=== PATIENT | female | born 1960 | race Caucasian/White ===

== ENCOUNTER → 2017-05-09 | Outpatient (CLI) | payer MEDICAID ==
[2017-05-09 08:49] LABS: Basophils % (A) 1 %; CH 35.8; CHCM 34.8; Eosinophils # (A) 0.2 k/uL (0-0.7); Eosinophils % (A) 3 %; HCT 46.3 % (34.0-46.0); HDW 2.68; HGB 15.4 gm/dL (11.4-16.0); Luc # (Auto) 0.08; Luc % (Auto) 2; Lymphocytes # (A) 1.8 k/uL (1.0-4.8); Lymphocytes % (A) 41 %; MCH 34.5 pg (25.0-35.0); MCHC 33.4 g/dL (31.0-37.0); MCV 103.3 fL (80.0-100.0); Macrocytosis Slight; Mean Platelet Volume 7.1; Monocytes # (A) 0.3 k/uL (0-1.0); Monocytes % (A) 7 %; Neutrophils % (A) 46 %; RBC 4.48 m/uL (3.80-5.40); RDW 13.5 % (11.5-15.5); WBC 4.4 k/uL (3.8-10.6); WBC (Perox) 4.32
[2017-05-09 08:52] LABS: ALT 45 U/L (9-52); AST 33 U/L (14-36); Alkaline Phosphatase 66 U/L (38-126); Anion Gap 9 mmol/L; Blood Urea Nitrogen 15 mg/dL (7-17); Calcium 9.5 mg/dL (8.4-10.2); Carbon Dioxide 28 mmol/L (22-30); Chloride 107 mmol/L (98-107); Cholesterol 270 mg/dL (<200); Glucose 93 mg/dL (74-99); HDL Cholesterol 71 mg/dL (40-60); Non-African American GFR(MDRD) >60 (>60 ml/min/1.73 sqM); Potassium 4.6 mmol/L (3.5-5.1); Sodium 144 mmol/L (137-145); Total Bilirubin 0.7 mg/dL (0.2-1.3); Total Protein 7.9 g/dL (6.3-8.2)
== END | disposition home or self-care (01) ==
LOC: LABWHC1 08:10
PROVIDERS: ATTEND Physician Assistant
DX: Z01.419 Encounter for gynecological examination (general) (routine) without abnormal findings (principal); Z13.220 Encounter for screening for lipoid disorders
CPT/HCPCS: 36415; 80053; 80061; 82306; 85025

== ENCOUNTER → 2017-05-26 | Outpatient (CLI) | payer MEDICAID ==
--- NOTE | 2017-05-29 14:05 | MM ---
Reason for exam: screening (asymptomatic). Last mammogram was performed 1 year ago. History: Patient is postmenopausal and history of other cancer. Physical Findings: A clinical breast exam by your physician is recommended on an annual basis and results should be correlated with mammographic findings. MG 3D Screening Mammo W/Cad Bilateral CC and MLO view(s) were taken. Prior study comparison: May 11, 2016, bilateral MG 3d screening mammo w/cad. March 25, 2015, bilateral MG screening mammo w CAD. There are scattered fibroglandular densities. No significant changes when compared with prior studies. ASSESSMENT: Negative, BI-RAD 1 RECOMMENDATION: Routine screening mammogram of both breasts in 1 year.
== END | disposition home or self-care (01) ==
LOC: RADMAMWWP 15:25
PROVIDERS: ATTEND Family Medicine
DX: Z12.31 Encounter for screening mammogram for malignant neoplasm of breast (principal)
CPT/HCPCS: 77063; G0202

== ENCOUNTER → 2017-10-16 | Outpatient (CLI) | payer MEDICAID ==
--- NOTE | 2017-10-16 10:16 | EST ---
EXERCISE STRESS DATE OF SERVICE: 10/16/2017 AGE: 57 SEX: Female HT: 68" WT: 142 pounds PROTOCOL: Cardiolite Deven STAGE: II DURATION OF EXERCISE: 6 minutes HEART RATE REST: 77 BLOOD PRESSURE REST: 117/81 MAXIMUM HEART RATE ACHIEVED: 156 MAXIMUM BLOOD PRESSURE: 149/54 85% MPHR: 139 100% MPHR: 164 METS: 7 INDICATIONS: Abnormal EKG and chest pain. CLINICAL INFORMATION: Baseline EKG shows sinus rhythm, normal axis, normal intervals. Patient exercised on Deven protocol for a total of 6 minutes achieving 7 METs, 95% of predicted maximal heart rate without chest pain. At peak exercise, there was 0.[address]-segment depression noted in the inferolateral leads. CONCLUSIONS: 1. Average exercise tolerance. 2. Nondiagnostic EKG changes with exercise. 3. Cardiolite portion of the stress test will be reported separately. MMMYLESL / IJN: [id number] /
--- NOTE | 2017-10-16 12:11 | NM ---
EXAMINATION TYPE: NM stress cardiolite complete DATE OF EXAM: 10/16/2017 COMPARISON: NONE HISTORY: 57-year-old female with chest pain TECHNIQUE: After the intravenous administration of 10.78 mCi Tc 99m Sestamibi - Rest images obtained 50 minutes post injection. The patient exercised using a ORACIO protocol and 1 minute prior to peak exercise was injected with 29.8 mCi Tc 99m Sestamibi - Stress images obtained 10 minutes post inject ion. FINDINGS: Targeted heart rate was achieved during performance of the study (95% maximal heart rate achieved). Review of stress and rest SPECT images demonstrates a moderate-sized area of fixed perfusion defect a long the mid anterior, anteroseptal wall. Gated analysis shows some augmentation of this segment of t he left ventricular wall and otherwise normal wall motion with an estimated left ventricular ejection fraction of 72 %. TID is calculated at 1.06, within normal limits. IMPRESSION: 1. No scintigraphic evidence for reversible ischemia. 2. Moderate-sized fixed perfusion abnormality along the mid anterior, anteroseptal wall could reflect an old infarct or prominent attenuation artifact. Clinically correlate. The latter is favored.
== END | disposition home or self-care (01) ==
LOC: RADNMMAIN 07:49
PROVIDERS: ATTEND Family Medicine
DX: R93.1 Abnormal findings on diagnostic imaging of heart and coronary circulation (principal); R07.9 Chest pain, unspecified
CPT/HCPCS: 93017; 78452; A9500

== ENCOUNTER → 2017-11-08 | Outpatient (CLI) | payer MEDICAID ==
--- NOTE | 2017-11-08 14:37 | ECHOS ---
STRESS ECHOCARDIOGRAM INDICATIONS: Abnormal Stress, chest pain. MEDICATIONS: Lipitor, Ultram, aspirin. BASELINE HEART RATE: 77 BASELINE BLOOD PRESSURE: 111/51 MAXIMUM HEART RATE: 168 MAXIMUM BLOOD PRESSURE: 160/75 85% MPHR: 139 100% MPHR: 164 METS: 12.1 MAXIMUM STAGE REACHED: III TOTAL EXERCISE TIME: 11:01 CLINICAL INFORMATION: Baseline rhythm is sinus mechanism, rate of 77, normal axis, intervals, normal electrocardiogram. Baseline blood pressure 111/51 mmHg. Patient exercised on Deven protocol for 11 minutes 1 second. Patient's peak rate at 168 beats per minute, which is equal to 102% maximum predicted heart rate. Peak blood pressure 160/75 mmHg. Test was terminated due to fatigue. There was no chest pain. Electrocardiograph monitoring revealed no evidence of diagnostic ischemic ST deviation. FINDING: Baseline echocardiogram revealed normal systolic function. At peak exercise, there was normal wall motion augmentation with no hypokinesis or dyskinesis. CONCLUSION: 1. Good exercise tolerance with normal electrocardiograph response to exercise. 2. Normal stress echocardiogram with no evidence of stress-induced ischemia. MMODL / IJN: [id number] /
== END | disposition home or self-care (01) ==
LOC: RADNMMAIN 09:01
PROVIDERS: ATTEND Internal Medicine Interventional Cardiology
DX: R07.89 Other chest pain (principal)
CPT/HCPCS: 93350; 93017; Q9950

== ENCOUNTER → 2017-12-13 | Outpatient (CLI) | payer MEDICAID ==
[2017-12-13 08:20] LABS: ALT 48 U/L (9-52); AST 37 U/L (14-36); Cholesterol 154 mg/dL (<200); HDL Cholesterol 64 mg/dL (40-60); LDL Cholesterol,Calculated 72 mg/dL (0-99); Triglycerides 92 mg/dL (<150)
== END | disposition home or self-care (01) ==
LOC: LABWHC1 07:01
PROVIDERS: ATTEND Internal Medicine Interventional Cardiology
DX: E78.2 Mixed hyperlipidemia (principal)
CPT/HCPCS: 36415; 80061; 84450; 84460

== ENCOUNTER → 2018-02-07 | Outpatient (CLI) | payer MEDICAID ==
[2018-02-07 15:42] VITALS: BP 118/80; PULSE 69; RESP 16
--- NOTE | 2018-02-07 16:06 | P.CONS ---
History of Present Illness - Reason for Consult Consult date: 02/07/18 - History of Present Illness This is 57 years FEMALE with acute history of severe right-sided neck pain and headache, started 6 days ago, she denies any initiating event and she reported that the pain is constant and increases with any neck movement, she denies any motor or sensory deficit in the upper extremity, described intensity of the pain 6/10 increased with any neck movement to 8/10, interfering with her quality of life, she denies any fever or night sweats, ringing sensation Past Medical History Past Medical History: Blood Disorder Additional Past Medical History / Comment(s): 11/20/14 Pt admitted to floor s/p cervical arthroplasty C5-6, C6-7. Other HX: FACTOR 5-MTHFR MUTATION, HX OF BASAL CELL SKIN CA, CHRONIC NECK PAIN. LAST SEIZURE 2 YRS AGO. History of Any Multi-Drug Resistant Organisms: None Reported Past Surgical History: Back Surgery, Hysterectomy, Orthopedic Surgery, Tonsillectomy Additional Past Surgical History / Comment(s): 11/20/14 Cervical arthroplasty C5 -6, C6-7. BASAL CELL SKIN CA - RT SHOULDER. LAPAROSCOPY, FUSION L4 & L5. Past Anesthesia/Blood Transfusion Reactions: No Reported Reaction Past Psychological History: No Psychological Hx Reported Smoking Status: Never smoker Past Alcohol Use History: Occasional Past Drug Use History: None Reported Medications and Allergies Home Medications Medication Instructions Recorded Confirmed Type Ibuprofen [Motrin] 1 tab PO DIRECTED PRN 03/24/14 11/20/14 History Multivitamins, Thera [Multivitamin 1 each PO DAILY 11/13/14 11/20/14 History (formulary)] traMADol HCl [Ultram] 50 mg PO Q12HR PRN 02/07/18 02/07/18 History Allergies Allergy/AdvReac Type Severity Reaction Status Date / Time No Known Allergies Allergy Verified 02/07/18 15:31 Physical Exam Vitals: Vital Signs Pulse Resp BP Pulse Ox 02/07/18 15:33 69 16 118/80 97 Intake and Output 02/07/18 02/07/18 02/07/18 06:59 14:59 22:59 Other: Weight 65.771 kg Physical Examinations : 1-Constitutiona : Cooperative , not in acute distress . 2-HEENT : nech ; supple , no Lymphadenopathy , normal thyroid size . eyes : no ptosis , no icterus, no photophobia . ENT : normal of hearing , normal oropharynx , no Thrush . 3- Respiratory : Chest clear to auscultations Bilaterally , no wheezing , no Rhonchi . 4- Cardiovascular : regular rate and rhythem , S1 , S2 , no S3 , no S4. 5- Gastrointestinal : abdomen soft no tenderness , bowel sounds , no organomegally . 6- Genitourinary : Defferred . 7- neurologic : Cranial nerve II to XII intact , no focal neurological deffecit . 8-psychatric : alert , oriented X 3 , appropriate affect , intact judgment and insight . 9-Lymphatic : no Lymphadenopathy . 10- musculoskeltal : cervical spine = motor stregnth in the deltoid and biceps, motor stregnth biceps and the wrist extensors (C6) . motor stregnth in the triceps muscle . deep tendon reflexes normal at the biceps Right , Left normal at the brachioradia Right , Left Normal at the triceps Right ,Left cervical facet loading test positive. , Multiple trigger points identified in the right-sided cervical paravertebral muscles, suprascapular muscle Lumber spine = normal moter stegnth lower extremities ,thigh and legs .02/03 Assessment and Plan Plan: Assessment and plan= acute neck pain, mostly musculoskeletal in nature, patient will be good candidate to have trigger point injection, right sided cervical paravertebral muscles, and if she continued to have pain after the injection , then we should do MRI of the cervical spine, to evaluate , the etiology facetogenic component versus discogenic component, because patient had the cervical disc arthroplasty done a few years ago ,at C5 6 C6 7 level, which could make her higher risk to have cervical facet arthropathy , Time with Patient: Less than 30
== END | disposition home or self-care (01) ==
LOC: PNWHC3 14:26
PROVIDERS: ATTEND Specialist
DX: G89.29 Other chronic pain (principal); M54.2 Cervicalgia; R51 Headache; Z98.890 Other specified postprocedural states; Z90.89 Acquired absence of other organs; Z79.1 Long term (current) use of non-steroidal anti-inflammatories (NSAID); Z79.899 Other long term (current) drug therapy; Z85.828 Personal history of other malignant neoplasm of skin; Z79.891 Long term (current) use of opiate analgesic
CPT/HCPCS: 99211

== ENCOUNTER 2018-02-08 07:41 | Day surgery (SDC) | payer MEDICAID ==
[2018-02-08 09:07] VITALS: TEMP 97.6
[2018-02-08] MEDS ORDERED: LACTATED RINGERS 1,000 ML IV ONE (09:25)
[2018-02-08] MEDS ORDERED: LIDOCAINE 1% 20 ML VIAL (10MG/ML) FOR IV START INTRADERMA ONE (09:26)
--- NOTE | 2018-02-08 10:28 | P.PCN ---
Date of Procedure: 02/08/18 Procedure(s) Performed: Preoperative diagnoses= 1-myofascial pain syndrome and cervical area Postoperative diagnoses= same as preoperative diagnosis. Procedure= trigger point injections cervical paravertebral muscles , 4 trigger points injected ,on the right side cervical paravertebral muscles Anesthesia= moderate sedation with Versed 2 mg and fentanyl 100 micrograms . Estimated blood loss=minimal. Procedure indication= the patient had a history of severe neck pain clinicwith myofascial pain syndrome and cervical area. Procedure description= the patient was seen and identified in the preoperative holding area, risks and benefits and alternative of the procedure and possible complications discussed with the patient, and he agreed with the preceding, patient signed the consent, an IV was started, and vital signs were monitored and were stable throughout the procedure, patient was placed in the sitting position or table and the cervical area was prepped and draped with a sterile fashion, vital signs were closely monitored during the procedure, then Marcaine 0.5% mixed with 40 mg of Kenalog , 2.5 mL of the mixture , injected at each trigger point , after negative aspiration for heme and CSF and there was no paresthesia during the injection, using 25 guige needle ,then the needle removed, Patient tolerated the procedure well without any complication, The patient returned to supine position after the back was cleaned and a Band- Aid applied, the patient transported to recovery room in stable condition and he was monitored for 30 minutes before he was discharged home and then patient was reexamined before going home and patient was discharged in stable condition and patient will follow up with the pain clinic in a few weeks
[2018-02-08] MEDS ORDERED: IV FLUID CONTINUATION 1,000 ML IV ONE (10:54)
[2018-02-08 11:07] VITALS: BP 115/75; PULSE 67
--- NOTE | 2018-02-12 12:07 | CDI ---
Date: 02/12/18 CDS/Digging Machine Operator Name: Nan Pedro Phone: If any questions, call Zoe Schrader Records Management Clerk at [phone] Patient Name: Kuldip Montalvo Admit Date: 02/08/18 Discharge Date: 02/08/18 ATTENTION: The [facility] Coding Staff appreciate your assistance in clarifying documentation. Please respond to the clarification below the line at the bottom and electronically sign. The [facility] Coding staff will review the response and follow-up if needed. Please note: Queries are made part of the Legal Health Record. If you have any questions, please contact the Records Management Clerk. Dear Dr. Ch, Please provide clarification as to how many muscles were treated with the trigger point injections. Trigger points are coded per muscle treated. Please see below. Trigger point injection codes, clarification CPT Executive Vice President Of [employer], March 2017 Page: 10 Category: Frequently Asked Questions Related Information Surgery: Musculoskeletal System Question: How many times may codes 58182, Injection(s); single or multiple trigger point(s ), 1 or 2 muscle(s), and 55152, Injection(s); single or multiple trigger point(s ), 3 or more muscles, be reported per session with imaging guidance? Answer: : The trigger point injection(s) codes (86683 and 25746) are reported once per session based on the number of muscles injected, regardless of the number of trigger points injected in each muscle. Code 90989 is reported for trigger point (s) injection(s) in 1 or 2 muscles, and code 65795 is reported for trigger points injection(s) in 3 or more muscles. If imaging guidance is utilized, report the appropriate radiology code (79161, 46202, and 96196) in addition to the injection codes. CPT Executive [employer] Of [employer] Copyright 0814-7211, [employer]. All rights reserved Thank you for your kind consideration. MTDD
--- NOTE | 2018-02-22 10:17 | P.PN ---
Progress Note - Text Progress Note Date: 02/22/18 This is clarifications to the procedure note that was dictated earlear , the procedures done is trigger points injections , total of 4 trigger points ,right side cervical area,I injected 2 muscles ,the first muscle was the splenius capitis muscle ( 2 trigger points injected in that mscule) , and the second muscle was the Right trapezius muscule ( 2 trigger points injected in that muscle )
== END 2018-02-08 11:18 | disposition home or self-care (01) ==
LOC: ORPAIN 07:41
PROVIDERS: ATTEND Specialist
DX: G89.29 Other chronic pain (principal); M79.1 Myalgia; D68.51 Activated protein C resistance; Z85.828 Personal history of other malignant neoplasm of skin
CPT/HCPCS: 20552; J2250; J3301; J3010; 20553; 99152

== ENCOUNTER → 2018-07-10 | Outpatient (CLI) | payer MEDICAID ==
[2018-07-10 08:24] LABS: Basophils % (A) 1 %; Eosinophils # (A) 0.2 k/uL (0-0.7); Eosinophils % (A) 3 %; HCT 42.4 % (34.0-46.0); HGB 14.3 gm/dL (11.4-16.0); Lymphocytes # (A) 1.7 k/uL (1.0-4.8); Lymphocytes % (A) 37 %; MCH 33.9 pg (25.0-35.0); MCHC 33.8 g/dL (31.0-37.0); MCV 100.3 fL (80.0-100.0); Mean Platelet Volume 6.5; Monocytes # (A) 0.3 k/uL (0-1.0); Monocytes % (A) 6 %; Neutrophils # (A) 2.5 k/uL (1.3-7.7); Neutrophils % (A) 52 %; Platelet Count 216 k/uL (150-450); RBC 4.23 m/uL (3.80-5.40); WBC 4.7 k/uL (3.8-10.6)
[2018-07-10 08:33] LABS: ALT 43 U/L (9-52); AST 34 U/L (14-36); Albumin 4.2 g/dL (3.5-5.0); Alkaline Phosphatase 47 U/L (38-126); Anion Gap 7 mmol/L; Blood Urea Nitrogen 20 mg/dL (7-17); Calcium 9.6 mg/dL (8.4-10.2); Carbon Dioxide 30 mmol/L (22-30); Chloride 106 mmol/L (98-107); Cholesterol 187 mg/dL (<200); Glucose 94 mg/dL (74-99); HDL Cholesterol 65 mg/dL (40-60); LDL Cholesterol,Calculated 94 mg/dL (0-99); Potassium 4.6 mmol/L (3.5-5.1); Sodium 143 mmol/L (137-145); Total Bilirubin 0.8 mg/dL (0.2-1.3); Total Protein 7.4 g/dL (6.3-8.2); Triglycerides 142 mg/dL (<150)
== END | disposition home or self-care (01) ==
LOC: LABWHC1 07:48
PROVIDERS: ATTEND Nurse Practitioner Family
DX: Z00.00 Encounter for general adult medical examination without abnormal findings (principal); E55.9 Vitamin D deficiency, unspecified; E78.2 Mixed hyperlipidemia
CPT/HCPCS: 36415; 80053; 80061; 82652; 84443; 85025

== ENCOUNTER → 2018-07-17 | Outpatient (CLI) | payer MEDICAID ==
--- NOTE | 2018-07-17 14:57 | XR ---
EXAMINATION TYPE: XR foot complete bilateral DATE OF EXAM: 07/17/2018 CLINICAL HISTORY: Right fifth digit bunion and bilateral foot pain. Concern for arthropathy. TECHNIQUE: Frontal, lateral, and oblique images of the bilateral feet are obtained. COMPARISON: None FINDINGS: There is no acute fracture/dislocation evident in either foot. On the left there is incidental note of an os naviculare. A fragmented ossicle is also seen adjacent to the cuboid that appears well-corticated. On the right there is a smaller posterior naviculare. Pes planus deformity is seen bilaterally. A small infracalcaneal heel spurs noted on the left. Minimal d egenerative changes are seen at the first metatarsophalangeal joint on the right demonstrated as osse ous perforation. No other significant degenerative change are seen. IMPRESSION: 1. There is no acute fracture or dislocation in either foot. 2. Very minimal degenerative change at the first metatarsophalangeal joint on the right. 3. Pes planus. 4. Small left plantar enthesophyte/heel spur.
== END | disposition home or self-care (01) ==
LOC: RADXRMAIN 13:18
PROVIDERS: ATTEND Orthopaedic Surgery
DX: M19.072 Primary osteoarthritis, left ankle and foot (principal); M19.071 Primary osteoarthritis, right ankle and foot; M77.32 Calcaneal spur, left foot; M21.42 Flat foot [pes planus] (acquired), left foot; M21.41 Flat foot [pes planus] (acquired), right foot

== ENCOUNTER → 2018-08-07 | Outpatient (CLI) | payer MEDICAID ==
--- NOTE | 2018-08-08 11:34 | MM ---
Reason for exam: screening (asymptomatic). Last mammogram was performed 1 year and 2 months ago. History: Patient is postmenopausal and history of other cancer. Physical Findings: A clinical breast exam by your physician is recommended on an annual basis and results should be correlated with mammographic findings. MG 3D Screening Mammo W/Cad Bilateral CC and MLO view(s) were taken. Prior study comparison: May 26, 2017, bilateral MG 3d screening mammo w/cad. May 11, 2016, bilateral MG 3d screening mammo w/cad. There are scattered fibroglandular densities. There is no discrete abnormality. No significant changes when compared with prior studies. ASSESSMENT: Negative, BI-RAD 1 RECOMMENDATION: Routine screening mammogram of both breasts in 1 year.
== END ==
LOC: RADMAMWWP 15:23
PROVIDERS: ATTEND Family Medicine
DX: Z12.31 Encounter for screening mammogram for malignant neoplasm of breast (principal)
CPT/HCPCS: 77063; 77067

== ENCOUNTER → 2018-10-05 | Outpatient (CLI) | payer MEDICAID ==
--- NOTE | 2018-10-10 18:46 | HM ---
HOLTER MONITOR REPORT 72-HOUR HOLTER REPORT: This patient did not provide any diary. I did not see any diary with the recording. Predominant rhythm appears to be sinus with a heart rate that ranged from 57 to probably 170 beats per minute, but average heart rate on each day was in the range of 92 beats per minute. On October 07, October 06, it was 81 beats per minute, and on October 05 it was 80 beats per minute. Predominant rhythm is sinus. Rare isolated PVCs were noted. On the last day, on October 07 at midnight, there was a run of supraventricular tachycardia at 170 beats per minute of nearly 20 to 25 beats, but patient was presumably asleep and there was no diary at that time. Overall, the rhythm is sinus with rare isolated PVCs. No evidence of any bradyarrhythmia and no evidence of any significant SVT other than the one episode of about 20 beats at 170 beats per minute. FINAL IMPRESSION: Over this 72-hour Holter no diary was provided. There is evidence of one 20-beat run of SVT that occurred at midnight on the night of October 07 and . There were no symptoms are reported at that time and no diary was provided. Otherwise, rare PVCs were noted. No bradyarrhythmia was noted. MMODL / IJN: [id number] /
== END | disposition home or self-care (01) ==
LOC: RADECHMAIN 12:08
PROVIDERS: ATTEND Family Medicine
DX: R00.2 Palpitations (principal)
CPT/HCPCS: 93225; 93226

== ENCOUNTER → 2018-10-09 | Outpatient (CLI) | payer MEDICAID ==
[2018-10-09 16:25] LABS: T4, Free (Free Thyroxine) 1.1 ng/dL (0.80-1.80)
== END | disposition home or self-care (01) ==
LOC: LABWHC1 08:28
PROVIDERS: ATTEND Family Medicine
DX: R00.2 Palpitations (principal)
CPT/HCPCS: 36415; 84439; 84443

== ENCOUNTER → 2018-11-12 | Outpatient (CLI) | payer MEDICAID ==
--- NOTE | 2018-11-12 12:43 | EST ---
EXERCISE STRESS AGE: 58 SEX: F HT: 68" WT: 145 PROTOCOL: Deven Stress Test STAGE: III DURATION OF EXERCISE: 10:00 HEART RATE REST: 84 BLOOD PRESSURE REST: 116/86 MAXIMUM HEART RATE ACHIEVED: 159 MAXIMUM BLOOD PRESSURE: 168/67 85% MPHR: 139 100% MPHR: 163 METS: 11.7 INDICATIONS: Palpitations. CLINICAL INFORMATION: Baseline EKG shows sinus rhythm, normal axis, normal intervals. Patient exercised on Deven protocol for a total of 10 minutes achieving 11 METS, 97% of predicted maximal heart rate without chest pain or diagnostic ST-segment depression. CONCLUSION: 1. Good exercise tolerance. 2. Negative stress test by EKG criteria. MMODL / IJN: [id number] /
--- NOTE | 2018-12-07 09:03 | EM ---
EVENT MONITOR A 30-DAY EVENT MONITOR INDICATION OF THE STUDY: Irregular heart rhythm. The patient was monitored for 4 weeks. The baseline rhythm appeared to be sinus mechanism. The patient did have multiple episodes of narrow complex tachycardia consistent with SVT with differential diagnosis of atrial flutter. During these episodes, the patient did have heart rate in the 150s to 160 beats per minute. Beside that, the patient has been overall maintaining normal sinus mechanism. During these episodes of SVT, the patient was completely asymptomatic. She did have some symptoms of irregular heart beats during these symptoms she was in normal sinus mechanism. There is no evidence of any advanced AV block seen. There is no evidence of any sinus pause or sinus arrest seen. CONCLUSION: 1. This is a 4-week event monitor. 2. Sinus rhythm as a baseline mechanism. 3. The patient did have multiple episodes of narrow complex tachycardia consistent with SVT with differential diagnosis of atrial flutter. During these episodes, the heart rate was in the 150s to 160 beats per minute and the patient was completely asymptomatic. 4. No evidence of any sinus pause or sinus arrest. 5. No evidence of any advanced AV block. 6. The patient did have some symptoms of irregular heartbeat and during these symptoms she was in normal sinus mechanism. MMODL / IJN: [id number] /
== END | disposition home or self-care (01) ==
LOC: RADNMMAIN 10:22
PROVIDERS: ATTEND Internal Medicine Interventional Cardiology
DX: R00.0 Tachycardia, unspecified (principal); R00.2 Palpitations
CPT/HCPCS: 93017; 93270; 93271

== ENCOUNTER → 2018-12-05 | Outpatient (CLI) | payer MEDICAID ==
[2018-12-05 13:23] LABS: LDL Cholesterol,Calculated 111.8 mg/dL (0.0-131.0); VLDL Calculation 19.2 mg/dL (5.00-40.00)
== END ==
LOC: LABWHC1 06:31
PROVIDERS: ATTEND Nurse Practitioner Adult Health
DX: E78.2 Mixed hyperlipidemia (principal)
CPT/HCPCS: 36415; 80061; 84450; 84460

== ENCOUNTER 2019-07-12 01:31 | Emergency (ER) | payer MEDICAID ==
[2019-07-12 01:39] VITALS: RESP 18
--- NOTE | 2019-07-12 01:56 | ED ---
Seizure HPI - General Chief Complaint: Seizure Stated Complaint: Siezure Time Seen by Provider: 07/12/19 01:36 Source: EMS Mode of arrival: EMS Limitations: no limitations - History of Present Illness Initial Comments: This patient is a 58-year-old woman who presents to be evaluated after she had a seizure at home tonight. The patient has previously had seizures, she had one in 1992 and then 1 in the early . Patient states she is not maintained on any anticonvulsant. The patient states she had been feeling not quite herself this evening. She had a diffuse, moderately severe aching headache. She had taken an [id number] headache medicine and then went to bed. The patient's was in his home office when he heard her vocalize, and went to check on her. He found that she was having tonic-clonic seizure. She was in bed. There was a brief period of confusion following, consistent with postictal period. Patient states she feels back at her baseline now and concurs. The patient denies any trauma. MD Complaint: seizure Onset/Timin -: hour(s) Description of Episode: loss of consciousness, tonic-clonic movement, post-event confusion -: second(s) Witnessed: yes - by bystander Trauma: No Seizure History: other (History of seizures) Place: home Possible Precipitating Event: none Associated Symptoms: denies other symptoms Treatments Prior to Arrival: none - Related Data Home Medications Medication Instructions Recorded Confirmed Ibuprofen [Motrin] 1 tab PO DIRECTED PRN 03/24/14 02/08/18 Multivitamins, Thera [Multivitamin 1 each PO DAILY 11/13/14 02/08/18 (formulary)] traMADol HCl [Ultram] 50 mg PO Q12HR PRN 02/07/18 02/08/18 Aspirin [Adult Low Dose Aspirin EC] 1 tab PO DAILY 02/08/18 02/08/18 Atorvastatin [Lipitor] 1 tab PO DAILY 02/08/18 02/08/18 Allergies Allergy/AdvReac Type Severity Reaction Status Date / Time No Known Allergies Allergy Verified 02/08/18 09:09 Review of Systems ROS Statement: Those systems with pertinent positive or pertinent negative responses have been documented in the HPI. ROS Other: All systems not noted in ROS Statement are negative. Constitutional: Denies: fever, chills, weakness Eyes: Denies: eye pain, vision change Respiratory: Denies: cough, dyspnea Cardiovascular: Denies: chest pain, palpitations Gastrointestinal: Denies: abdominal pain, vomiting, diarrhea Genitourinary: Denies: dysuria Musculoskeletal: Denies: back pain Skin: Denies: rash Neurological: Reports: as per HPI, headache. Denies: weakness, numbness, paresthesias, confusion, vertigo Past Medical History Past Medical History: Blood Disorder Additional Past Medical History / Comment(s): 11/20/14 Pt admitted to floor s/p cervical arthroplasty C5-6, C6-7. Other HX: FACTOR 5-MTHFR MUTATION, HX OF BASAL CELL SKIN CA, CHRONIC NECK PAIN. LAST SEIZURE 6 YRS AGO. History of Any Multi-Drug Resistant Organisms: None Reported Past Surgical History: Back Surgery, Hysterectomy, Orthopedic Surgery, Ton sillectomy Additional Past Surgical History / Comment(s): 11/20/14 Cervical arthroplasty C5-6, C6-7. BASAL CELL SKIN CA - RT SHOULDER. LAPAROSCOPY, FUSION L4 & L5. Past Anesthesia/Blood Transfusion Reactions: No Reported Reaction Past Psychological History: No Psychological Hx Reported Smoking Status: Never smoker Past Alcohol Use History: Occasional Past Drug Use History: None Reported General Exam Limitations: no limitations General appearance: alert, in no apparent distress Head exam: Present: atraumatic, normocephalic Eye exam: Present: normal appearance, PERRL, EOMI. Absent: scleral icterus, conjunctival injection, nystagmus ENT exam: Present: normal oropharynx, mucous membranes moist Neck exam: Present: normal inspection, full ROM. Absent: tenderness, meningismus Respiratory exam: Present: normal lung sounds bilaterally. Absent: respiratory distress, wheezes, rales, rhonchi, stridor Cardiovascular Exam: Present: regular rate, normal rhythm, normal heart sounds. Absent: systolic murmur, diastolic murmur, rubs, gallop GI/Abdominal exam: Present: soft. Absent: tenderness, guarding, rebound, mass Extremities exam: Present: normal inspection Back exam: Present: normal inspection. Absent: vertebral tenderness Neurological exam: Present: alert, oriented X3, CN II-XII intact. Absent: motor sensory deficit Skin exam: Present: warm, dry, intact, normal color. Absent: rash Course Vital Signs 07/12/19 01:34 Temperature 98.2 F Pulse Rate 118 H Respiratory 18 Rate Blood Pressure 128/88 O2 Sat by Pulse 96 Oximetry Medical Decision Making - Lab Data Result diagrams: 07/12/19 01:39 07/12/19 01:39 Lab Results 07/12/19 07/12/19 Range/Units 01:39 01:39 WBC 14.8 H (3.8-10.6) k/uL RBC 4.14 (3.80-5.40) m/uL Hgb 14.3 (11.4-16.0) gm/dL Hct 41.3 (34.0-46.0) % MCV 99.6 (80.0-100.0) fL MCH 34.5 (25.0-35.0) pg MCHC 34.6 (31.0-37.0) g/dL RDW 12.3 (11.5-15.5) % Plt Count 225 (150-450) k/uL Neutrophils % 82 % Lymphocytes % 12 % Monocytes % 4 % Eosinophils % 0 % Basophils % 1 % Neutrophils # 12.1 H (1.3-7.7) k/uL Lymphocytes # 1.8 (1.0-4.8) k/uL Monocytes # 0.6 (0-1.0) k/uL Eosinophils # 0.0 (0-0.7) k/uL Basophils # 0.1 (0-0.2) k/uL Sodium 139 (137-145) mmol/L Potassium 4.0 (3.5-5.1) mmol/L Chloride 104 (98-107) mmol/L Carbon Dioxide 21 L (22-30) mmol/L Anion Gap 14 mmol/L BUN 13 (7-17) mg/dL Creatinine 0.90 (0.52-1.04) mg/dL Est GFR (CKD-EPI)AfAm 83 (>60 ml/min/1.73 sqM) Est GFR (CKD-EPI)NonAf 72 (>60 ml/min/1.73 sqM) Glucose 143 H (74-99) mg/dL Calcium 9.8 (8.4-10.2) mg/dL Total Bilirubin 0.9 (0.2-1.3) mg/dL AST 23 (14-36) U/L ALT 24 (9-52) U/L Alkaline Phosphatase 75 (38-126) U/L Total Protein 7.9 (6.3-8.2) g/dL Albumin 4.6 (3.5-5.0) g/dL - EKG Data -: EKG Interpreted by Me EKG shows normal: sinus rhythm, axis (Normal), intervals (Normal), QRS complexes (Normal), ST-T waves (Normal) Rate: tachycardia (Rate approximate 117 bpm) Interpretation: normal EKG Disposition Clinical Impression: Generalized seizure Disposition: HOME SELF-CARE Condition: Good Instructions (If sedation given, give patient instructions): Recurrent Seizures in Adults (ED) Is patient prescribed a controlled substance at d/c from ED?: No Referrals: Anival Johnson III, MD [Primary Care Provider] - 1-2 days Lizzy Welch MD [STAFF PHYSICIAN] - 1-2 days
[2019-07-12] MEDS ORDERED: MORPHINE SULFATE 4 MG/ML SYRINGE IV STA (02:07)
[2019-07-12] MEDS ORDERED: diphenhydrAMINE 50 MG/ML 1 ML VIAL IVP STA (02:07)
[2019-07-12] MEDS ORDERED: SODIUM CHLORIDE 0.9% 500 ML 500 ML IV STA (02:07)
[2019-07-12] MEDS ORDERED: ONDANSETRON 4 MG/2 ML VIAL IVP STA (02:28)
[2019-07-12 02:40] LABS: Basophils # (A) 0.1 k/uL (0-0.2); Basophils % (A) 1 %; Eosinophils % (A) 0 %; HCT 41.3 % (34.0-46.0); HGB 14.3 gm/dL (11.4-16.0); Lymphocytes # (A) 1.8 k/uL (1.0-4.8); Lymphocytes % (A) 12 %; MCH 34.5 pg (25.0-35.0); MCHC 34.6 g/dL (31.0-37.0); MCV 99.6 fL (80.0-100.0); Mean Platelet Volume 5.9; Monocytes # (A) 0.6 k/uL (0-1.0); Monocytes % (A) 4 %; Neutrophils # (A) 12.1 k/uL (1.3-7.7); Neutrophils % (A) 82 %; Platelet Count 225 k/uL (150-450); RBC 4.14 m/uL (3.80-5.40); RDW 12.3 % (11.5-15.5); WBC 14.8 k/uL (3.8-10.6)
--- NOTE | 2019-07-12 02:44 | CT ---
EXAMINATION TYPE: CT brain wo con DATE OF EXAM: 07/12/2019 COMPARISON: 08/20/2012 HISTORY: seizure CT DLP: 995.8 mGycm Automated exposure control for dose reduction was used. FINDINGS: Ventricles have normal size. There is no mass effect nor midline shift. There is no sign of intracran ial hemorrhage. The calvarium is intact. There is no evidence of cerebral edema. IMPRESSION: NEGATIVE CT SCAN OF THE BRAIN. NO CHANGE.
[2019-07-12 02:47] LABS: Albumin 4.6 g/dL (3.5-5.0); Calcium 9.8 mg/dL (8.4-10.2); Total Bilirubin 0.9 mg/dL (0.2-1.3); Total Protein 7.9 g/dL (6.3-8.2)
[2019-07-12 04:03] VITALS: BP 130/80; PULSE 93; TEMP 97.7
== END 2019-07-12 04:03 | disposition home or self-care (01) ==
LOC: EC 01:31
DX: R56.9 Unspecified convulsions (principal); R55 Syncope and collapse; R41.0 Disorientation, unspecified; G89.29 Other chronic pain; Z79.82 Long term (current) use of aspirin; Z79.899 Other long term (current) drug therapy; Z85.828 Personal history of other malignant neoplasm of skin; Z96.698 Presence of other orthopedic joint implants; Z98.1 Arthrodesis status; Z98.890 Other specified postprocedural states
CPT/HCPCS: 36415; 93005; 80053; 85025; 70450; 99285; 96374; 96375 ×2; J2270; J1200; J2405

== ENCOUNTER → 2019-08-14 | Outpatient (CLI) | payer MEDICAID ==
[2019-08-14 07:09] LABS: Basophils # (A) 0.2 k/uL (0-0.2); Basophils % (A) 2 %; Eosinophils # (A) 0.4 k/uL (0-0.7); Eosinophils % (A) 5 %; HCT 42.9 % (34.0-46.0); HGB 14.3 gm/dL (11.4-16.0); Lymphocytes # (A) 2.2 k/uL (1.0-4.8); Lymphocytes % (A) 28 %; MCH 33.2 pg (25.0-35.0); MCHC 33.3 g/dL (31.0-37.0); MCV 99.5 fL (80.0-100.0); Mean Platelet Volume 6.3; Monocytes # (A) 0.5 k/uL (0-1.0); Monocytes % (A) 6 %; Neutrophils # (A) 4.7 k/uL (1.3-7.7); Neutrophils % (A) 59 %; Platelet Count 261 k/uL (150-450); RBC 4.31 m/uL (3.80-5.40); RDW 12.2 % (11.5-15.5)
[2019-08-14 11:42] LABS: African American GFR (CKD) 110.7 (60.0-200.0); Albumin 4.5 g/dL (3.80-4.90); Albumin/Globulin Ratio 1.8 (1.60-3.17); Anion Gap 9.4 mmol/L (4.00-12.00); BUN/Creat Ratio 21.43 Ratio (12.00-20.00); Calcium 9.6 mg/dL (8.7-10.3); Carbon Dioxide 27.6 mmol/L (21.6-31.8); Globulin 2.5 g/dL (1.6-3.3); Potassium 4.4 mmol/L (3.5-5.5); Total Bilirubin 0.7 mg/dL (0.2-1.2)
[2019-08-14 11:56] LABS: T4, Free (Free Thyroxine) 0.8 ng/dL (0.80-1.80)
== END | disposition home or self-care (01) ==
LOC: LABWHC1 06:36
PROVIDERS: ATTEND Psychiatry & Neurology Neurology
DX: Z00.00 Encounter for general adult medical examination without abnormal findings (principal); G40.909 Epilepsy, unspecified, not intractable, without status epilepticus; T50.905A Adverse effect of unspecified drugs, medicaments and biological substances, initial encounter
CPT/HCPCS: 36415; 80053; 80177; 84439; 84443; 85025

== ENCOUNTER → 2019-08-22 | Outpatient (CLI) | payer MEDICAID ==
--- NOTE | 2019-08-26 17:47 | EEG ---
ELECTROENCEPHALOGRAM REPORT PROCEDURE DATE: 08/22/2019. ELECTROENCEPHALOGRAM (EEG) REPORT: TECHNIQUE: A routine 18 channel EEG was performed with video using the 10/20 international electrode placement system. HISTORY: Seizures in 1994, 2011 and July of 2019. CURRENT MEDICATIONS: Zithromax, Lipitor, Keppra. STUDY DURATION: 25 minutes. FINDINGS: BACKGROUND: The background activity consisted of 9-10 hertz rhythmic waveforms symmetric through both posterior quadrants. ACTIVATION: Hyperventilation: Not performed. Photic stimulation: Symmetric driving seen. Sleep: Stages I and II sleep noted. ABNORMALITIES: None. IMPRESSION: Normal EEG. No epileptiform activity was present. No seizures were recorded. MMODL / IJN: [id number] /
== END | disposition home or self-care (01) ==
LOC: NEUROMAIN 11:50
PROVIDERS: ATTEND Psychiatry & Neurology Neurology
DX: G93.81 Temporal sclerosis (principal)
CPT/HCPCS: 95819

== ENCOUNTER 2019-08-23 07:00 | Day surgery (SDC) | payer MEDICAID ==
[2019-08-21 11:52] VITALS: BMI 22.0
[~2019-08-23 07:00] MED LIST: LACTATED RINGERS 1,000 ML IV SCH; LIDOCAINE 1% 20 ML VIAL (10MG/ML) FOR IV START INTRADERMA PRN
[2019-08-23 07:16] VITALS: RESP 16; TEMP 97.7
[2019-08-23] MEDS ORDERED: MIDAZOLAM 2 MG/2 ML VIAL IV ONE (07:27)
[2019-08-23] MEDS ORDERED: PROPOFOL 10 MG/ML 20 ML VIAL IV ONE (07:37)
[2019-08-23] MEDS ORDERED: LIDOCAINE 1% INJ 10MG/ML (20 ML MDV) ONE (07:37)
--- NOTE | 2019-08-23 07:49 | P.GSHP ---
History of Present Illness H&P Date: 08/23/19 Chief Complaint: Colon cancer screening 51-year-old female here today for colonoscopy. History of previous colon polyps. Last colonoscopy 5 years is normal. No family history of colon cancer. No bowel related complaints. Past Medical History Past Medical History: Blood Disorder Additional Past Medical History / Comment(s): 11/20/14 Pt admitted to floor s/p cervical arthroplasty C5-6, C6-7. Other HX: FACTOR 5-MTHFR MUTATION, HX OF BASAL CELL SKIN CA, CHRONIC NECK PAIN. LAST SEIZURE JULY 2019. History of Any Multi-Drug Resistant Organisms: None Reported Past Surgical History: Back Surgery, Hysterectomy, Orthopedic Surgery, Tonsillectomy Additional Past Surgical History / Comment(s): 11/20/14 Cervical arthroplasty C5-6, C6-7. BASAL CELL SKIN CA - RT SHOULDER. LAPAROSCOPY, FUSION L4 & L5. Past Anesthesia/Blood Transfusion Reactions: No Reported Reaction Past Psychological History: No Psychological Hx Reported Smoking Status: Never smoker Past Alcohol Use History: Occasional Past Drug Use History: None Reported - Past Family History Sister(s) Family Medical History: Cancer Daughter(s) Family Medical History: Deep Vein Thrombosis (DVT) Medications and Allergies Home Medications Medication Instructions Recorded Confirmed Type Aspirin [Adult Low Dose Aspirin EC] 81 mg PO DAILY 02/08/18 08/21/19 History Atorvastatin [Lipitor] 40 mg PO DAILY 02/08/18 08/23/19 History Azithromycin [Zithromax] 250 mg PO DAILY 08/21/19 08/23/19 History levETIRAcetam [Keppra] 750 mg PO Q12HR 08/21/19 08/23/19 History Acetaminophen Tab [Tylenol Tab] 650 mg PO Q6H 08/23/19 08/23/19 History Allergies Allergy/AdvReac Type Severity Reaction Status Date / Time No Known Allergies Allergy Verified 08/23/19 07:16 Surgical - Exam Vital Signs Temp Pulse Resp BP Pulse Ox 97.7 F 115 H 16 128/91 96 08/23/19 07:15 08/23/19 07:15 08/23/19 07:15 08/23/19 07:15 08/23/19 07:15 Physical exam: General: Well-developed, well-nourished HEENT: Normocephalic, sclerae nonicteric Abdomen: Nontender, nondistended Extremities: No edema Neuro: Alert and oriented Assessment and Plan (1) Colon cancer screening Narrative/Plan: Will proceed with colonoscopy at this time Current Visit: Yes Status: Acute Code(s): Z12.11 - ENCOUNTER FOR SCREENING FOR MALIGNANT NEOPLASM OF COLON SNOMED Code(s): 001713444
--- NOTE | 2019-08-23 08:09 | P.PCN ---
Date of Procedure: 08/23/19 Procedure(s) Performed: PREOPERATIVE DIAGNOSIS: Colon cancer screening, history of polyps POSTOPERATIVE DIAGNOSIS: Mild diverticulosis PROCEDURE: Colonoscopy ANESTHESIA: [facility] SURGEON: Osmany Linder M.D. SPECIMENS: None ENDOSCOPIC PROCEDURE: The patient was placed on the endoscopy table in the left decubitus position. The Olympus colonoscope was inserted into the anus and passed under direct visualization to the base of the cecum. The appendiceal orifice was visualized. From that point the scope was slowly withdrawn inspecting all surfaces carefully. There were no neoplastic inflammatory or polypoid lesions throughout the cecum, ascending, transverse, descending, sigmoid and rectum. There was mild scattered diverticulosis noted. Digital rectal examination was normal. The patient was taken to the recovery room in stable condition per anesthesia guidelines. RECOMMENDATIONS: Increase fiber. Follow-up colonoscopy 5-10 years.
[2019-08-23 08:41] VITALS: BP 120/79; PULSE 74
== END 2019-08-23 08:47 | disposition home or self-care (01) ==
LOC: ORWHC2ENDO 07:00
PROVIDERS: ATTEND Surgery
DX: Z12.11 Encounter for screening for malignant neoplasm of colon (principal); Z86.010 Personal history of colon polyps; K57.30 Diverticulosis of large intestine without perforation or abscess without bleeding; E72.12 Methylenetetrahydrofolate reductase deficiency; D68.51 Activated protein C resistance; G89.29 Other chronic pain; R56.9 Unspecified convulsions; Z86.2 Personal history of diseases of the blood and blood-forming organs and certain disorders involving the immune mechanism; Z98.1 Arthrodesis status; Z85.828 Personal history of other malignant neoplasm of skin; Z90.710 Acquired absence of both cervix and uterus; Z90.89 Acquired absence of other organs; Z98.890 Other specified postprocedural states; Z79.82 Long term (current) use of aspirin; Z79.899 Other long term (current) drug therapy; Z79.2 Long term (current) use of antibiotics
CPT/HCPCS: 45378; J2250; J2001; J2704

== ENCOUNTER → 2019-08-24 | Outpatient (CLI) | payer MEDICAID ==
--- NOTE | 2019-08-25 20:26 | MR ---
EXAMINATION TYPE: MR brain wo/w con DATE OF EXAM: 08/24/2019 COMPARISON: CT brain 07/12/2019 HISTORY: Seizure TECHNIQUE: Multiplanar, multisequence images of the brain and brainstem is performed without and with IV contras t, utilizing 7.5 mL intravenous Gadavist . FINDINGS: Diffusion weighted images demonstrate no evidence of a recent infarct or other diffusion ab normality. There is no extra-axial fluid collection. There are scattered hyperintensities in the pe riventricular, subcortical white matter on inversion recovery T2-weighted sequences, approximately 50 lesions are present. Largest is on axial image #17 in the periventricular white matter adjacent to t he posterior horn of the right lateral ventricle measuring 16 mm in AP dimension. The ventricular sys tem and cisternal spaces are normal in size and appearance. The brain volume is age appropriate. Midline structures demonstrate normal morphology. The craniocervical junction appears within normal limits. Post contrast images demonstrate no abnormal enhancement. The dural venous sinuses appear pa tent. The visualized sinuses are remarkable for mucosal disease in the maxillary sinuses, ethmoid air cells, and the globes are intact. IMPRESSION: Nonspecific white matter demyelination. Sinus disease.
== END | disposition home or self-care (01) ==
LOC: RADMRIMAIN 07:40
PROVIDERS: ATTEND Psychiatry & Neurology Neurology
DX: G40.909 Epilepsy, unspecified, not intractable, without status epilepticus (principal); R94.02 Abnormal brain scan
CPT/HCPCS: 70553; A9585

== ENCOUNTER → 2019-08-27 | Outpatient (CLI) | payer MEDICAID ==
--- NOTE | 2019-08-28 10:08 | MM ---
Reason for exam: screening (asymptomatic). Last mammogram was performed 1 year and 1 month ago. History: Patient is postmenopausal and has history of other cancer at age 53. Family history of breast cancer in sister at age 60. Physical Findings: A clinical breast exam by your physician is recommended on an annual basis and results should be correlated with mammographic findings. MG 3D Screening Mammo W/Cad Bilateral CC and MLO view(s) were taken. Prior study comparison: August 07, 2018, bilateral MG 3d screening mammo w/cad. May 26, 2017, bilateral MG 3d screening mammo w/cad. There are scattered fibroglandular densities. There is no discrete abnormality. ASSESSMENT: Negative, BI-RAD 1 RECOMMENDATION: Routine screening mammogram of both breasts in 1 year.
== END | disposition home or self-care (01) ==
LOC: RADMAMWWP 15:27
PROVIDERS: ATTEND Obstetrics & Gynecology Obstetrics
DX: Z12.31 Encounter for screening mammogram for malignant neoplasm of breast (principal); Z80.3 Family history of malignant neoplasm of breast
CPT/HCPCS: 77063; 77067

== ENCOUNTER → 2020-07-22 | Outpatient (CLI) | payer MEDICAID ==
--- NOTE | 2020-07-22 22:30 | BD ---
EXAMINATION TYPE: Axial Bone Density DATE OF EXAM: 07/22/2020 COMPARISON: 01/02/2006 bone scan report. CLINICAL HISTORY: Postmenopausal female. Height: 66.5 IN Weight: 156 LBS FRAX RISK QUESTIONS: Secondary Osteoporosis: 3. Menopause before 45: PARTIAL HYST AGE 40 RISK FACTORS HISTORY OF: Surgery to Spine: YES FUSION 2010 Active: YES Postmenopausal woman: PARTIAL HYST AGE 40 MEDICATIONS: Additional Medications: MULTI VIT, LIPITOR, KEPRA, CLARITIN, BABY ASPIRIN, IMMUNITY MEDS EXAM MEASUREMENTS: Bone mineral densitometry was performed using the [employer] System. Bone mineral density about the R hip (g/cm2): 0.916 Bone mineral density about the L hip (g/cm2): 0.892 T Score values are as follows: -----R Neck: -0.9 -----L Neck: -1.1 -----R Total: 0.1 -----L Total: 0.0 Bone mineral density has: Decreased -5.8% since study of: 01/02/2006 Bone mineral density about the L Wrist (g/cm2): 0.738 T Score values are as follows: -----Dist. R+U: 2.7 -----Prox. R+U: 0.0 -----Radius total: 1.1 Bone mineral density BASELINE IMPRESSION: Osteopenia (T Score between -2.5 and -1) femoral neck level in the left hip. There is slightly increased risk of fracture and the patient may be considered for treatment. Re-Screen 2-5 years. NOTE: T-SCORE=SD OF THE YOUNG ADULT MEAN.
== END | disposition home or self-care (01) ==
LOC: RADBDWWP 15:49
PROVIDERS: ATTEND Obstetrics & Gynecology Obstetrics
DX: M85.852 Other specified disorders of bone density and structure, left thigh (principal)
CPT/HCPCS: 77080

== ENCOUNTER → 2020-08-18 | Outpatient (CLI) | payer MEDICAID ==
--- NOTE | 2020-08-21 14:59 | HM ---
24-hour Holter monitor note: Procedure details: Patient underwent Holter monitor for a total of 24 hours from 08/18/2020 until 08/19/2020. Findings: Minimum heart rate was 63 bpm, maximum heart rate was 141 bpm. There were no significant ventricular events, no PVCs noted. There were no significant bradycardic episodes, no significant pauses greater than 2.5 seconds. There were 5 very short supraventricular events such as 3 beat SVT. Patient activated events corresponded with normal sinus rhythm. Conclusions: No significant bradycardic episodes or ventricular episodes. 5 very brief episodes of SVT. Patient's activated events of "fluttering" corresponded with normal sinus rhythm. [facility]
== END | disposition home or self-care (01) ==
LOC: RADECHMAIN 14:08
PROVIDERS: ATTEND Internal Medicine Clinical Cardiac Electrophysiology
DX: I47.1 Supraventricular tachycardia (principal); I49.8 Other specified cardiac arrhythmias
CPT/HCPCS: 93225; 93226

== ENCOUNTER → 2020-09-14 | Outpatient (CLI) | payer MEDICAID ==
[2020-09-14 09:33] LABS: HCT 43.4 % (34.0-46.0); HGB 14.6 gm/dL (11.4-16.0); MCH 34.3 pg (25.0-35.0); MCHC 33.6 g/dL (31.0-37.0); MCV 101.9 fL (80.0-100.0); Mean Platelet Volume 6.6; Platelet Count 240 k/uL (150-450); RBC 4.26 m/uL (3.80-5.40); RDW 11.9 % (11.5-15.5)
[2020-09-14 15:21] LABS: African American GFR (CKD) 81.1 (60.0-200.0); Albumin 4.6 g/dL (3.80-4.90); Albumin/Globulin Ratio 2.09 (1.60-3.17); Anion Gap 4.8 mmol/L (4.00-12.00); BUN/Creat Ratio 14.44 Ratio (12.00-20.00); Calcium 9.7 mg/dL (8.7-10.3); Carbon Dioxide 29.2 mmol/L (21.6-31.8); Chol/HDL Ratio 3.31; Globulin 2.2 g/dL (1.6-3.3); LDL Cholesterol,Calculated 101.4 mg/dL (0.0-131.0); Potassium 4.5 mmol/L (3.5-5.5); Total Bilirubin 0.7 mg/dL (0.2-1.2); Total Protein 6.8 g/dL (6.2-8.2); VLDL Calculation 23.6 mg/dL (5.00-40.00)
[2020-09-14 15:30] LABS: T4, Free (Free Thyroxine) 0.8 ng/dL (0.80-1.80)
[2020-09-14 20:32] LABS: Hemoglobin A1C 4.9 % (4.0-6.0)
== END | disposition home or self-care (01) ==
LOC: LABWHC1 08:17
PROVIDERS: ATTEND Obstetrics & Gynecology Obstetrics
DX: E78.5 Hyperlipidemia, unspecified (principal); R61 Generalized hyperhidrosis; Z78.0 Asymptomatic menopausal state; F39 Unspecified mood [affective] disorder
CPT/HCPCS: 36415; 80053; 80061; 83036; 84439; 84443; 85027

== ENCOUNTER → 2020-09-16 | Outpatient (CLI) | payer MEDICAID ==
--- NOTE | 2020-09-17 11:06 | MM ---
Reason for exam: screening (asymptomatic). Last mammogram was performed 1 year and 1 month ago. History: Patient is postmenopausal and has history of other cancer at age 53. Family history of breast cancer in sister at age 60. Physical Findings: A clinical breast exam by your physician is recommended on an annual basis and results should be correlated with mammographic findings. MG 3D Screening Mammo W/Cad Bilateral CC and MLO view(s) were taken. Prior study comparison: August 27, 2019, bilateral MG 3d screening mammo w/cad. August 07, 2018, bilateral MG 3d screening mammo w/cad. There are scattered fibroglandular densities. No significant changes when compared with prior studies. ASSESSMENT: Benign, BI-RAD 2 RECOMMENDATION: Routine screening mammogram of both breasts in 1 year.
== END | disposition home or self-care (01) ==
LOC: RADMAMWWP 15:30
PROVIDERS: ATTEND Obstetrics & Gynecology Obstetrics
DX: Z12.31 Encounter for screening mammogram for malignant neoplasm of breast (principal); Z80.3 Family history of malignant neoplasm of breast
CPT/HCPCS: 77063; 77067

== ENCOUNTER → 2021-05-30 | Outpatient (CLI) | payer MEDICAID ==
--- NOTE | 2021-05-30 13:47 | MR ---
EXAMINATION TYPE: MR angio head wo con DATE OF EXAM: 05/30/2021 COMPARISON: MR brain 01/02/2013 HISTORY: Headaches TECHNIQUE: Time of flight images focusing on the [place] were performed without contrast. FINDINGS: There is some motion artifact present Along the anterior cerebral artery best seen on the three-dimensional reconstructions, there is a 2 mm focus extending from the inferior margin the level of the junction of the A1 and a 2 segment. There is no evidence stenosis. Anterior posterior circula tion are intact. 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 Anterior communicating artery not seen with certainty. No evident embolus or dissection. 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
== END | disposition home or self-care (01) ==
LOC: RADMRIMAIN 11:43
PROVIDERS: ATTEND Psychiatry & Neurology Neurology
DX: R51.9 Headache, unspecified (principal)
CPT/HCPCS: 70544

== ENCOUNTER → 2021-10-08 | Outpatient (CLI) | payer MEDICAID ==
--- NOTE | 2021-10-11 12:24 | MM ---
Reason for exam: screening (asymptomatic). Last mammogram was performed 1 year and 1 month ago. History: Patient is postmenopausal and has history of other cancer at age 53. Family history of breast cancer in sister at age 60. Physical Findings: A clinical breast exam by your physician is recommended on an annual basis and results should be correlated with mammographic findings. MG 3D Screening Mammo W/Cad Bilateral CC and MLO view(s) were taken. Prior study comparison: September 16, 2020, bilateral MG 3d screening mammo w/cad. August 27, 2019, bilateral MG 3d screening mammo w/cad. There are scattered fibroglandular densities. Benign appearing bilateral calcifications. No significant changes when compared with prior studies. ASSESSMENT: Benign, BI-RAD 2 RECOMMENDATION: Routine screening mammogram of both breasts in 1 year.
== END | disposition home or self-care (01) ==
LOC: RADMAMWWP 14:57
PROVIDERS: ATTEND Obstetrics & Gynecology Obstetrics
DX: Z12.31 Encounter for screening mammogram for malignant neoplasm of breast (principal); Z80.3 Family history of malignant neoplasm of breast; Z78.0 Asymptomatic menopausal state
CPT/HCPCS: 77063; 77067

== ENCOUNTER → 2021-10-22 | Outpatient (CLI) | payer MEDICAID ==
[2021-10-22 11:25] LABS: ALT 35 U/L (8-44); AST 28 U/L (13-35); African American GFR (CKD) 92.9 (60.0-200.0); Albumin 4.8 g/dL (3.8-4.9); Albumin/Globulin Ratio 1.85 (1.60-3.17); Alkaline Phosphatase 66 U/L (41-126); BUN/Creat Ratio 19.63 Ratio (12.00-20.00); Blood Urea Nitrogen 15.7 mg/dL (9.0-27.0); Calcium 9.9 mg/dL (8.7-10.3); Carbon Dioxide 26.4 mmol/L (20.0-27.5); Chloride 106 mmol/L (96-109); Chol/HDL Ratio 3.08 Ratio; Globulin 2.6 g/dL (1.6-3.3); Glucose 89 mg/dL (70-110); LDL Cholesterol,Calculated 98.5 mg/dL (0.0-131.0); Non-African American GFR(CKD) 80.1 (60.0-200.0); Potassium 4.5 mmol/L (3.5-5.5); Sodium 144 mmol/L (135-145); Total Protein 7.4 g/dL (6.2-8.2)
== END | disposition home or self-care (01) ==
LOC: LABWHC1 06:57
PROVIDERS: ATTEND Internal Medicine Interventional Cardiology
DX: E78.2 Mixed hyperlipidemia (principal)
CPT/HCPCS: 36415; 80053; 80061

== ENCOUNTER → 2022-10-22 | Outpatient (CLI) | payer MEDICAID ==
[2022-10-22 16:23] LABS: ALT 31 U/L (8-44); AST 23 U/L (13-35); Chol/HDL Ratio 3.18 Ratio; LDL Cholesterol,Calculated 104.7 mg/dL (0.0-131.0)
== END | disposition home or self-care (01) ==
LOC: LABWHC1 09:28
PROVIDERS: ATTEND Internal Medicine Interventional Cardiology
DX: E78.2 Mixed hyperlipidemia (principal)
CPT/HCPCS: 36415; 80061; 84450; 84460

== ENCOUNTER → 2022-10-26 | Outpatient (CLI) | payer MEDICAID ==
--- NOTE | 2022-10-27 08:24 | MM ---
Reason for Exam: Screening (asymptomatic). Last screening mammogram was performed 12 month(s) ago. Patient History: Menarche at age 15. First Full-Term at age 22. Hysterectomy at age 40. Postmenopausal. Sister had breast cancer, age 60. Sister tested for BRCA1 outcome was negative. Sister tested for BRCA2 outcome was negative. Risk Values: Mireille 5 year model risk: 2.6%. NCI Lifetime model risk: 12.1%. Prior Study Comparison: 08/27/2019 Bilateral Screening Mammogram, [facility]. 09/16/2020 Bilateral Screening Mammogram, [facility]. 10/08/2021 Bilateral Screening Mammogram, [facility]. Tissue Density: There are scattered fibroglandular densities. Findings: Analyzed By CAD. There is no suspicious group of microcalcifications or new suspicious mass in either breast. Overall Assessment: Negative, BI-RAD 1 Management: Screening Mammogram of both breasts in 1 year. A clinical breast exam by your physician is recommended on an annual basis and results should be correlated with mammographic findings. Electronically signed and approved by: Pierce Krishnamurthy M.D. Radiologis
== END | disposition home or self-care (01) ==
LOC: RADMAMWWP 11:03
PROVIDERS: ATTEND Obstetrics & Gynecology Obstetrics
DX: Z12.31 Encounter for screening mammogram for malignant neoplasm of breast (principal); Z78.0 Asymptomatic menopausal state
CPT/HCPCS: 77063; 77067

== ENCOUNTER → 2023-05-12 | Outpatient (CLI) | payer MEDICAID ==
--- NOTE | 2023-05-12 10:09 | US ---
EXAMINATION TYPE: US abdomen complete DATE OF EXAM: 05/12/2023 COMPARISON: NONE CLINICAL INDICATION: Female, 62 years old with history of R10.11 R19.4; ongoing RUQ pain TECHNIQUE: Multiple sonographic images of the abdomen are obtained. FINDINGS: EXAM MEASUREMENTS: Liver Length: 15.6 cm Gallbladder Wall: 0.2 cm CBD: 0.5 cm Spleen: 9.4 cm Right Kidney: 9.1 x 5.0 x 4.1 cm Left Kidney: 9.1 x 4.4 x 5.0 cm Pancreas: wnl Liver: posterior right lobe cyst = 2.8 x 2.9 x 2.4cm Gallbladder: wnl Evidence for sonographic Barron's sign: no CBD: wnl Spleen: wnl Right Kidney: wnl Left Kidney: wnl Upper IVC: wnl Abd Aorta: wnl The liver is homogenous. The intrahepatic portion of the IVC and proximal abdominal aorta are within normal limits. There is no evidence of cholelithiasis. Common bile duct is unremarkable. The visu alized portions of the pancreas are homogenous. The spleen is unremarkable. Kidneys are symmetric a nd free of hydronephrosis. No renal lesions are seen. IMPRESSION: Simple cyst right hepatic lobe.
== END | disposition home or self-care (01) ==
LOC: RADUSWWP 08:04
PROVIDERS: ATTEND Family Medicine
DX: K76.89 Other specified diseases of liver (principal); R10.11 Right upper quadrant pain; R19.4 Change in bowel habit
CPT/HCPCS: 76700

== ENCOUNTER → 2023-05-12 | Outpatient (CLI) | payer MEDICAID ==
[2023-05-12 15:51] LABS: Basophils # (A) 0.04 X 10*3/uL (0.00-0.10); Basophils % (A) 0.7 %; Eosinophils # (A) 0.43 X 10*3/uL (0.04-0.35); Eosinophils % (A) 7.6 %; HCT 43.4 % (37.2-46.3); HGB 14.4 d/dL (12.0-15.0); Lymphocytes # (A) 2.25 X 10*3/uL (0.90-5.00); Lymphocytes % (A) 39.7 %; MCH 33.7 pg (27.0-32.0); MCHC 33.2 d/dL (32.0-37.0); MCV 101.6 FL (80.0-97.0); Mean Platelet Volume 9.3 FL (9.5-12.2); Monocytes # (A) 0.59 X 10*3/uL (0.20-1.00); Monocytes % (A) 10.4 %; NRBC Per 100 WBC 0 X 10*3/uL (0.00-0.01); Neutrophils # (A) 2.35 X 10*3/uL (1.80-7.70); Neutrophils % (A) 41.4 %; Platelet Count 244 X 10*3/uL (140-440); RBC 4.27 X 10*6/uL (4.10-5.20); WBC 5.67 X 10*3/uL (4.50-10.00)
[2023-05-12 16:14] LABS: ALT 25 U/L (8-44); AST 29 U/L (13-35); Albumin 4.6 d/dL (3.8-4.9); Albumin/Globulin Ratio 1.59 Ratio (1.60-3.17); Alkaline Phosphatase 79 U/L (41-126); BUN/Creat Ratio 27.25 Ratio (12.00-20.00); Blood Urea Nitrogen 21.8 mg/dL (9.0-27.0); Calcium 9.7 mg/dL (8.7-10.3); Chloride 107 mmol/L (96-109); Chol/HDL Ratio 3.21 Ratio; Globulin 2.9 d/dL (1.6-3.3); Glucose 83 mg/dL (70-110); LDL Cholesterol,Calculated 111.4 mg/dL (0.0-131.0); Potassium 4.4 mmol/L (3.5-5.5); Sodium 144 mmol/L (135-145); Total Bilirubin 0.4 mg/dL (0.3-1.2); Total Protein 7.5 d/dL (6.2-8.2)
== END | disposition home or self-care (01) ==
LOC: LABWHC1 08:24
PROVIDERS: ATTEND Family Medicine
DX: Z13.29 Encounter for screening for other suspected endocrine disorder (principal); E78.00 Pure hypercholesterolemia, unspecified; G40.89 Other seizures
CPT/HCPCS: 36415; 80053; 80061; 84443; 85025

== ENCOUNTER → 2023-11-30 | Outpatient (CLI) | payer MEDICAID ==
--- NOTE | 2023-12-01 07:30 | MM ---
Reason for Exam: Screening (asymptomatic). Last mammogram was performed 1 year(s) and 1 month(s) ago. Patient History: Menarche at age 15. First Full-Term at age 22. Hysterectomy at age 40. Postmenopausal. Sister had breast cancer, age 60. Sister tested for BRCA1 outcome was negative. Sister tested for BRCA2 outcome was negative. Risk Values: Mireille 5 year model risk: 2.7%. NCI Lifetime model risk: 11.8%. Prior Study Comparison: 09/16/2020 Bilateral Screening Mammogram, [facility]. 10/08/2021 Bilateral Screening Mammogram, [facility]. 10/26/2022 Bilateral MG 3D screening mammo w/cad, [facility]. Tissue Density: There are scattered fibroglandular densities. Findings: Analyzed By CAD. The pattern is symmetrical. No significant interval change is evident. No suspicious groups of microcalcifications, spiculated or lobular masses, architectural distortion or other secondary signs of malignancy are mammographically apparent. Overall Assessment: Benign, BI-RAD 2 Management: Screening Mammogram of both breasts in 1 year. A negative mammogram report should not preclude additional follow up of suspicious palpable abnormalities. Patient should continue monthly self breast exam. A clinical breast exam by your physician is recommended on an annual basis and results should be correlated with mammographic findings. Electronically signed and approved by: Siddharth Montilla D.O. Radiologis
== END | disposition home or self-care (01) ==
LOC: RADMAMWWP 14:44
PROVIDERS: ATTEND Obstetrics & Gynecology Obstetrics
DX: Z12.31 Encounter for screening mammogram for malignant neoplasm of breast (principal); Z78.0 Asymptomatic menopausal state; Z80.3 Family history of malignant neoplasm of breast
CPT/HCPCS: 77063; 77067

== ENCOUNTER 2024-07-18 10:59 | Day surgery (SDC) | payer MEDICAID ==
[2024-07-18] MEDS: IV FLUID CONTINUATION 1,000 ML IV ONE (11:18)
[2024-07-18 11:25] VITALS: RESP 16; TEMP 97
[2024-07-18] MEDS: LACTATED RINGERS 1,000 ML BAG IV STA (11:40)
[2024-07-18] MEDS: ONDANSETRON 4 MG/2 ML VIAL IVP STA (11:45)
[2024-07-18] MEDS: MIDAZOLAM 2 MG/2 ML VIAL IV ONE (11:46)
[2024-07-18] MEDS ORDERED: LIDOCAINE 2% (PF) 20 MG/ML 5 ML VIAL ONE (12:28)
[2024-07-18] MEDS ORDERED: PROPOFOL 10 MG/ML 20 ML VIAL IV ONE (12:28)
--- NOTE | 2024-07-18 12:31 | P.GSHP ---
History of Present Illness H&P Date: 07/18/24 Chief Complaint: Colon cancer screening 63-year-old female known to our service. Patient has a history of colon polyps in the past. Here today for elective colonoscopy. No bowel complaints currently. Last colonoscopy 5 to 6 years ago. Past Medical History Past Medical History: Blood Disorder, Cancer, GERD/Reflux, Hyperlipidemia, Seizure Disorder Additional Past Medical History / Comment(s): FACTOR 5-MTHFR MUTATION, HX OF BASAL CELL SKIN CA, CHRONIC NECK PAIN. LAST SEIZURE JULY 2019. History of Any Multi-Drug Resistant Organisms: None Reported Past Surgical History: Back Surgery, Hysterectomy, Orthopedic Surgery, Tonsillectomy Additional Past Surgical History / Comment(s): 11/20/14 Cervical arthroplasty C5- 6, C6-7. BASAL CELL SKIN CA - RT SHOULDER. LAPAROSCOPY. FUSION L4 & L5 2010. Past Anesthesia/Blood Transfusion Reactions: No Reported Reaction Smoking Status: Never smoker Medications and Allergies Home Medications Medication Instructions Recorded Confirmed Type Aspirin [Adult Low Dose Aspirin EC] 81 mg PO DAILY 02/08/18 07/18/24 History Atorvastatin [Lipitor] 40 mg PO HS 02/08/18 07/18/24 History levETIRAcetam [Keppra] 500 mg PO BID 08/21/19 07/18/24 History Acetaminophen Tab [Tylenol Tab] 650 mg PO Q6H 08/23/19 07/18/24 History Allergies Allergy/AdvReac Type Severity Reaction Status Date / Time No Known Allergies Allergy Verified 07/18/24 11:26 Surgical - Exam Vital Signs Temp Pulse Resp BP Pulse Ox 97.0 F L 75 16 155/89 98 07/18/24 11:23 07/18/24 11:23 07/18/24 11:23 07/18/24 11:23 07/18/24 11:23 Physical exam: General: Well-developed, well-nourished HEENT: Normocephalic, sclerae nonicteric Abdomen: Nontender, nondistended Extremities: No edema Neuro: Alert and oriented Assessment and Plan (1) Colon cancer screening Narrative/Plan: Will proceed with colonoscopy at this time. Current Visit: No Status: Acute Code(s): Z12.11 - ENCOUNTER FOR SCREENING FOR MALIGNANT NEOPLASM OF COLON SNOMED Code(s): 530912488
--- NOTE | 2024-07-18 13:15 | P.PCN ---
Date of Procedure: 07/18/24 Procedure(s) Performed: PREOPERATIVE DIAGNOSIS: Epigastric pain, screening with history of colon polyps POSTOPERATIVE DIAGNOSIS: Gastritis with a few superficial erosions, mild diverticulosis, tortuous colon PROCEDURE: 1. EGD with biopsy 2. Colonoscopy ANESTHESIA: [facility] [place] SURGEON: Osmany Linder M.D. SPECIMENS: Antrum ENDOSCOPIC PROCEDURE: The patient was on the endoscopy table in the left decubitus position. The Olympus gastroscope was inserted into the oropharynx and passed under direct visualization to the region of the third portion of the duodenum. From that point the scope was slowly withdrawn inspecting all surfaces carefully. There were no neoplastic inflammatory or polypoid lesions throughout the duodenum. The pylorus was widely patent. The stomach was carefully inspected. There was gastritis present with a few small superficial erosions noted. A biopsy of the antrum took place to rule out H. pylori. Retroflexion revealed a normal hiatus. The esophagus was then carefully examined. There were no neoplastic inflammatory or polypoid lesions throughout the visualized esophagus. The patient was kept on the endoscopy table in the left decubitus position. The Olympus colonoscope was inserted into the anus and passed under direct visualization to the region of the cecum. I could visualize what appeared to represent the ileocecal valve however I was unable to manipulate the tip of the scope into the base of the cecum. The appendiceal orifice was not visualized. This was despite multiple position changes and abdominal wall pressures. The scope was withdrawn from this point inspecting all surfaces carefully. There were no neoplastic inflammatory or polypoid lesions throughout the visualized cecum, ascending, transverse, descending, sigmoid and rectum. There was mild scattered diverticulosis noted. Digital rectal examination was normal. The patient was taken to the recovery room in stable condition per anesthesia guidelines. RECOMMENDATIONS: Resume diet. Repeat upper and lower endoscopy 5 to 7 years.
[2024-07-18 13:35] VITALS: BP 129/74; PULSE 64
== END 2024-07-18 14:23 | disposition home or self-care (01) ==
LOC: ORWHC2ENDO 10:59
PROVIDERS: ATTEND Surgery
CPT/HCPCS: 43239; 45378; 88305

== ENCOUNTER → 2025-02-04 | Outpatient (CLI) | payer MEDICAID ==
--- NOTE | 2025-02-05 07:27 | MM ---
Reason for Exam: Screening (asymptomatic). Last mammogram was performed 1 year(s) and 3 month(s) ago. Patient History: Menarche at age 15. First Full-Term at age 22. Hysterectomy at age 40. Postmenopausal. Sister had breast cancer, age 60. Sister tested for BRCA1 outcome was negative. Sister tested for BRCA2 outcome was negative. Risk Values: Mireille 5 year model risk: 2.7%. NCI Lifetime model risk: 11.4%. Prior Study Comparison: 10/08/2021 Bilateral Screening Mammogram, [facility]. 10/26/2022 Bilateral MG 3D screening mammo w/cad, [facility]. 11/30/2023 Bilateral MG 3D screening mammo w/cad, [facility]. Tissue Density: The breasts are almost entirely fatty. Findings: Analyzed By CAD. Right breast: There is no suspicious group of microcalcifications or new suspicious mass. Left breast: There is no suspicious group of microcalcifications or new suspicious mass. Overall Assessment: Negative, BI-RAD 1 Management: Screening Mammogram of both breasts in [address] [facility] will attempt to contact patient to return for supplemental views and ultrasound if indicated. Patient should continue monthly self-breast exams. A clinical breast exam by your physician is recommended on an annual basis. This exam should not preclude additional follow-up of suspicious palpable abnormalities. Note on Mireille scores and lifetime risk: 1. A Mireille score greater than 3% is considered moderate risk. If this is the case, consider specialist referral to assess eligibility for a risk reducing agent. 2. If overall lifetime risk for the development of breast cancer is 20% or higher, the patient may qualify for future screening with alternating mammogram and breast MRI. [facility], , 02/05/2025 7:24 AM. Electronically signed and approved by: Malcolm Garcia DO
== END | disposition home or self-care (01) ==
LOC: RADMAMWWP 14:58
PROVIDERS: ATTEND Family Medicine
DX: Z12.31 Encounter for screening mammogram for malignant neoplasm of breast (principal); R92.313 Mammographic fatty tissue density, bilateral breasts; Z78.0 Asymptomatic menopausal state; Z80.3 Family history of malignant neoplasm of breast
CPT/HCPCS: 77063; 77067